=== PATIENT | male | born 1970 | race Caucasian/White ===

== ENCOUNTER 2016-09-06 17:26 | Emergency (ER) | payer OTHER ==
[~2016-09-06 17:26] MED LIST: FLUT16SP NS
[2016-09-06] MEDS ORDERED: oxyCODONE-Acetamin 5-325 mg Tablet PO ONE (17:45)
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
[2016-09-06] MEDS ORDERED: HYDR-4003 PO (18:54)
[2016-09-06] MEDS ORDERED: Bacitracin Ointment Packet TOPICAL ONE (18:55)
[2016-09-06 19:15] VITALS: BP 157/92; PULSE 74; RESP 13; O2SAT 98
== END 2016-09-06 19:15 | disposition home or self-care (01) ==
LOC: SED 17:26
DX: S43.102A Unspecified dislocation of left acromioclavicular joint, initial encounter (principal); T14.8 Other injury of unspecified body region; V23.4XXA Motorcycle driver injured in collision with car, pick-up truck or van in traffic accident, initial encounter; Y92.410 Unspecified street and highway as the place of occurrence of the external cause; Y93.55 Activity, bike riding; Y99.8 Other external cause status; M54.5 Low back pain; G89.29 Other chronic pain; Z87.828 Personal history of other (healed) physical injury and trauma
CPT/HCPCS: 73000; 73110; 99285; G0390